=== PATIENT | female | born 1955 | race Caucasian/White ===

== ENCOUNTER 2023-03-11 17:24 | Emergency (ER) | payer OTHER ==
[~2023-03-11] VITALS: Ht 162.6 cm; Wt 136.1 kg
[2023-03-11] MEDS ORDERED: KETOROLAC 60 MG/2 ML VIAL IM ONE (17:30)
[2023-03-11 17:33] VITALS: BP 135/54; PULSE 78; RESP 17; TEMP 97.7; O2SAT 99
[2023-03-11] MEDS ORDERED: IBUP-2213 PO (17:58)
[2023-03-11] MEDS ORDERED: ACET-8905 PO (17:58)
[2023-03-11] MEDS ORDERED: BACITRACIN OINT 500 UNITS/GM PKT TP ONE ×2 (18:15→18:16)
[2023-03-11 19:01] VITALS: BP 132/76; PULSE 76; RESP 18; O2SAT 99
== END 2023-03-11 20:00 | disposition home or self-care (01) ==
LOC: MED 17:24
DX: S60.222A Contusion of left hand, initial encounter (principal); M25.512 Pain in left shoulder; I48.91 Unspecified atrial fibrillation; J44.9 Chronic obstructive pulmonary disease, unspecified; E11.9 Type 2 diabetes mellitus without complications; I10 Essential (primary) hypertension; Z98.890 Other specified postprocedural states; Z79.899 Other long term (current) drug therapy; Z79.1 Long term (current) use of non-steroidal anti-inflammatories (NSAID); Z88.5 Allergy status to narcotic agent; Z88.1 Allergy status to other antibiotic agents; V89.2XXA Person injured in unspecified motor-vehicle accident, traffic, initial encounter; Y93.89 Activity, other specified; Y92.410 Unspecified street and highway as the place of occurrence of the external cause; Y99.8 Other external cause status
CPT/HCPCS: 73030; 73130; 90471; 90715; 96372; 99284; J1885